=== PATIENT | female | born 1960 | race Caucasian/White ===

== ENCOUNTER 2019-02-25 10:10 | Emergency (ER) | payer BC ==
[2019-02-25] MEDS ORDERED: COZAAR100 MG PO (10:33)
[2019-02-25] MEDS ORDERED: ATORVASTATIN CA10 MG PO (10:33)
[2019-02-25] MEDS ORDERED: NORVASC 10MG10 MG PO (10:33)
[2019-02-25] MEDS ORDERED: LEXAPRO20 M1 PO (10:33)
[2019-02-25 11:28] LABS: ALBUMIN 4.2 g/dL (3.5-5.0); ALT/SGPT 28 U/L (0-55); AST-SGOT 21 U/L (5-34); BAND 2 % (0-10); CALCIUM 9.3 mg/dL (8.3-10.5); CARBON DIOXIDE 23 mmol/L (22-29); GLUCOSE 120 mg/dL (65-105); HEMATOCRIT 45.8 % (37.0-47.0); HEMOGLOBIN 14.8 g/dL (12.5-16.0); LIPASE 49 U/L (8-78); LYMPHOCYTE 2 % (20-51); MEAN CELL VOLUME 86 fl (78-100); MEAN CORPUSCULAR HEMOGLOBIN 28 pg (27-31); MEAN CORPUSCULAR HGB CONC 32 g/dL (33-37); MEAN PLATELET VOLUME 10.4 fl (7.4-10.4); MONOCYTE 2 % (3-10); NEUTROPHILS 94 % (42-75); PLATELET COUNT 204 K/mm3 (130-400); RED CELL DISTRIBUTION WIDTH 13.4 % (11.5-14.5); SODIUM 140 mmol/L (136-145); TOTAL BILIRUBIN 0.8 mg/dL (0.2-1.2); WHITE BLOOD COUNT 10.1 K/mm3 (4.8-10.8)
[2019-02-25 11:50] LABS: TROPONIN-I < 0.03 ng/mL (<0.030)
[2019-02-25 12:04] LABS: D-DIMER 0.54 mg/L FEU (0.15-0.50)
[2019-02-25 12:09] LABS: URINE APPEARANCE HAZY; URINE BILIRUBIN NEGATIVE (NEGATIVE); URINE BLOOD 50 ery/uL (NEGATIVE); URINE COLOR YELLOW; URINE GLUCOSE NEGATIVE (NEGATIVE); URINE KETONE NEGATIVE (NEGATIVE); URINE LEUKOCYTE ESTERASE NEGATIVE (NEGATIVE); URINE NITRATE NEGATIVE (NEGATIVE); URINE PROTEIN(semi-quant) TRACE mg/dL (NEGATIVE); URINE UROBILINOGEN NORMAL (NORMAL)
[2019-02-25 12:10] LABS: URINE MUCUS PRESENT (NOT PRESENT)
[2019-02-25] MEDS ORDERED: ONDANSETRON ODT8 MG PO (14:40)
[2019-02-25 14:50] VITALS: BP 143/78
== END 2019-02-25 15:06 | disposition home or self-care (01) ==
LOC: ED 10:10
PROVIDERS: Nurse Practitioner Family
DX: I10 Essential (primary) hypertension (principal); R19.7 Diarrhea, unspecified; R11.2 Nausea with vomiting, unspecified; Z88.0 Allergy status to penicillin; Z88.2 Allergy status to sulfonamides; Z88.1 Allergy status to other antibiotic agents
CPT/HCPCS: J1885; J2405; J7030